=== PATIENT | female | born 1990 | race Caucasian/White ===

== ENCOUNTER 2016-10-19 16:39 | Emergency (ER) | payer BC ==
[2016-10-19] MEDS ORDERED: NS 0.9% 1000 ML* 1,000 ML IV ONE ×2 (17:33→18:43)
--- NOTE | 2016-10-19 17:59 | ED ---
Abdominal Pain/Female - HPI Summary HPI Summary: 26 female present to ED with complaints of a epigastric abdominal burning pain that radiates into left side and below shoulder blades that began around 1pm today after eating a burrito. Patient states the pain has not resolved since. Denies difficulty breathing and difficulty swallowing. Has not taken any medication for the pain. Admits to nausea. Denies vomiting, blood in stool, diarrhea and constipation. States she has had similar pain in the past after eating spicy foods that resolved on its own. States this episode feels to be worse than the past. Bringing her knees to her chest makes the pain better, laying, deep breaths and eating food makes the pain a little worse. States it is a burning 6/10. No known surgeries. Has never been diagnosed with known gallbladder disease or GERD. 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 LBM: this morning and normal LMP: The 30th of last month. No vaginal, genitalia or urinary symptoms. Negative . No concern for STDs. PMHx significant for sick sinus syndrome and MVP. Denies HTN, high cholesterol or any other medical problems. No other risk factors. No alcohol or drug use. Does smoke cigarettes. Denies known fever/chills, SOB, difficulty breathing, headache and weakness. - History of Current Complaint Chief Complaint: EDAbdPain Stated Complaint: ABD PAIN Time Seen by Provider: 10/19/16 17:51 Hx Obtained From: Patient ?: No Onset/Duration: Sudden Onset, Lasting Hours - 7, Still Present Timing: Constant Severity Initially: Moderate Severity Currently: Moderate Pain Intensity: 6 Pain Scale Used: 0-10 Numeric Location: Epigastric Radiates: Yes Radiates to: Back - left side and below shoulder blades in back Character: Burning Aggravating Factor(s): Food, Deep Breaths, Other: - position Alleviating Factor(s): Position - bringing knees to chest Associated Signs and Symptoms: Positive: Back Pain, Nausea. Negative: Constipation, Blood in Stool, Urinary Symptoms, Decreased Appetite, Vaginal Bleeding, Vaginal Discharge, Vomiting - Risk Factors Ectopic Risk Factor: Negative Ovarian Torsion Risk Factor: Negative Allergies/Adverse Reactions: Allergies Allergy/AdvReac Type Severity Reaction Status Date / Time Sulfa Antibiotics Allergy Vomiting Verified 10/19/16 16:46 PMH/Surg Hx/FS Hx/Imm Hx Endocrine/Hematology History: Denies: Hx Anticoagulant Therapy, Hx Blood Disorders, Hx Diabetes Cardiovascular History: Reports: Hx Valvular Heart Disease - MVP, Other Cardiovascular Problems/Disorders - sick sinus syndrome Denies: Hx Hypercholesterolemia, Hx Hypertension Respiratory History: Denies: Hx Asthma - Surgical History Surgery Procedure, Year, and Place: none - Immunization History Immunizations Up to Date: Yes Infectious Disease History: No Infectious Disease History: Denies: Traveled Outside the [place] in Last 30 Days - Family History Known Family History: Positive: Unknown - Social History Alcohol Use: Occasionally Substance Use Type: Reports: None Smoking Status (MU): Current Every Day Smoker Review of Systems Constitutional: Negative Positive: Chest Pain - +/- radiating from epigastric pain Respiratory: Negative Positive: Abdominal Pain, Nausea Genitourinary: Negative Musculoskeletal: Negative Skin: Negative Neurological: Negative All Other Systems Reviewed And Are Negative: Yes Physical Exam Triage Information Reviewed: Yes Vital Signs On Initial Exam: Initial Vitals Temp Pulse Resp BP Pulse Ox 100.3 F 82 16 129/76 99 10/19/16 16:46 10/19/16 16:46 10/19/16 16:46 10/19/16 16:46 10/19/16 16:46 low grade fever noted Vital Signs Reviewed: Yes Appearance: Positive: Well-Appearing, Well-Nourished, Pain Distress - mild Skin: Positive: Warm, Skin Color Reflects Adequate Perfusion, Dry. Negative: Cold, Numb, Cyanosis @, Jaundiced, Pale, Erythema @ Head/Face: Positive: Normal Head/Face Inspection Eyes: Positive: Conjunctiva Clear ENT: Positive: Hearing grossly normal, Pharynx normal Neck: Positive: Supple, Nontender Respiratory/Lung Sounds: Positive: Clear to Auscultation, Breath Sounds Present. Negative: Decreased Breath Sounds, Rales, Rhonchi, Wheezes Cardiovascular: Positive: Normal, RRR, Pulses are Symmetrical in both Upper and Lower Extremities. Negative: Murmur, Rub, Leg Edema Left, Leg Edema Right Abdomen Description: Positive: No Organomegaly, Soft, Other: - positive vance's , tender on palpation of epigastric area, rest of abdomen non tender. no discolorations or scarring. no obvious masses. Negative: Bruit, CVA Tenderness (R), CVA Tenderness (L), Distended, Guarding, McBurney's Point Tenderness, Peritoneal Signs, Pulsatile Mass Bowel Sounds: Positive: Present Pelvic Exam: Positive: external exam normal - per patient, deferred exam at this time due to no symptoms Musculoskeletal: Positive: Normal, Strength/ROM Intact Neurological: Positive: Normal, Sensory/Motor Intact, Alert, Oriented to Person Place, Time, CN Intact II-III, Reflexes Intact, NV Bundle Intact Distally, Normal Gait Psychiatric: Positive: Affect/Mood Appropriate Diagnostics - Vital Signs Vital Signs Temp Pulse Resp BP Pulse Ox 10/19/16 17:30 85 21 114/78 99 10/19/16 17:27 100.3 F 82 16 109/81 100 10/19/16 17:25 76 23 109/81 99 10/19/16 17:12 83 99 10/19/16 16:46 100.3 F 82 16 129/76 99 - Laboratory Result Diagrams: 10/19/16 17:50 10/19/16 17:50 Lab Statement: Any lab studies that have been ordered have been reviewed, and results considered in the medical decision making process. - Radiology chest Xray Interpretation: No Acute Changes - no active cardiopulmoinary disease Radiology Interpretation Completed By: Radiologist - CT CTA chest/abd CT Interpretation: No Acute Changes - no aortic dissection or aneurysm. no bowel obstruction, colitis, free fluid or free air in abdomen and visulaized portions of pelvis. appendix not seen. pericecal surgicail changes. unremarkable gallbladder and pancreas. CT Interpretation Completed By: Radiologist - Ultrasound No standard instances Ultrasound Interpretation: No Acute Changes - NO ACUTE SONOGRAPHIC PATHOLOGY OF THE VISUALIZED PORTION OF THE ABDOMEN Ultrasound Interpretation Completed By: Radiologist - EKG EKG Cardiac Rate: NL EKG Rhythm: Sinus Rhythm ST Segment: Normal Ectopy: None EKG Interpretation: NSR no stemi or ST changes, probable left atrial enlargment EKG Comparison: No Significant Change Re-Evaluation - Re-Evaluation First Eval Re-Evaluation Time: 20:00 Change: Worse - pain was worse after administration of GI cocktail. nausea also had worsened Second Eval Re-Evaluation Time: 21:00 Change: Improved - patient's pain improved after toradol, zofran and protonix. feeling better. however pain is still there. Third Eval Re-Evaluation Time: 22:40 Change: Improved - still feeling much better, understand plan and updated on imaging and lab results. ready to be d/c Abdominal Pain Fem Course/Dx - Course Course Of Treatment: given zofran, fluids and gi cocktail. labs and urinalysis obtained and unremarkable. 11k WBC. negative hcg. EKG obtained no stemi, NSR. troponin and d-dimer negative. patient's symptoms/pain improved after toradol, zofran and protonix medication. did not help with gi cocktail. u/s gallbladder obtained due to PE findings and HPI however was negative. No concern for emergent abdomen (appendicitis, pancreatitis, renal caluli, pyelonephritis or cholecystitis, gi bleed, PUD) at this time. Appears to be suffering from GERD flare/gastritis/duodenitis due to HPI and PE findings. Ruled out cardiac. No pulsatile mass or risk factors for AAA. However obtained CTA to rule out aneurysm. Unremarkable. Will be sent home on zantac and antacids. educated on diet and other lifestyle changes to help prevent attacks. follow up gi for possible endoscopy in future and to rule out h pylori. - Diagnoses Differential Diagnosis: Positive: Abdominal Aortic Aneurysm, ACS, Constipation, Gall Bladder Disease, NC, Peptic Ulcer Disease, , Urinary Tract Infection, Other - GERD, gastritis Provider Diagnoses: Gastritis, GERD (gastroesophageal reflux disease) Discharge - Discharge Plan Condition: Stable Disposition: HOME Prescriptions: Famotidine TAB* [Pepcid 20 MG TAB*] 20 mg PO BID #20 tab Ondansetron ODT TAB* [Zofran 4 MG Odt TAB*] 4 mg PO Q6H PRN #20 tab.odt PRN Reason: Nausea Patient Education Materials: Diet for Stomach Ulcers and Gastritis (ED), Gastroesophageal Reflux Disease (ED), Gastritis (ED) Referrals: Non Staff,Doctor [Primary Care Provider] - Additional Instructions: Take prescribed medication for the next couple of days to treat the GERD/ Gastritis. Also take antacids daily with meals. Follow up and make an appointment with Gastro for further work up and evaluation such as endoscopy. Try and eliminate dietary triggers (fatty foods, caffeine, chocolate, spicy foods, food with high fat content, carbonated beverages, and peppermint) Promotion of salivation through oral lozenges/chewing gum to neutralize refluxed acid and increase the rate of esophageal acid clearance. Avoidance of tobacco and alcohol as both reduce lower esophageal sphincter pressure and smoking also diminishes salivation. Abdominal breathing exercise to strengthen the antireflux barrier of the lower esophageal sphincter. Chew slowly. Sit up one hour after eating. If symptoms return, worsen, persist or new symptoms develop please seek medical attention promptly.
[2016-10-19] MEDS ORDERED: Ondansetron INJ* 2 MG/ML VIAL IV ONE ×2 (18:00→20:04)
[2016-10-19 18:03] LABS: Hematocrit 42 % (35-47); Hemoglobin 14.3 g/dl (12.0-16.0); Mean Corpuscular HGB Conc 34 g/dl (31-36); Mean Corpuscular Hemoglobin 34 pg (27-31); Mean Corpuscular Volume 99 fL (80-97); Mean Platelet Volume 7 um3 (7.4-10.4); Red Blood Count 4.25 10^6/ul (4.0-5.4); Red Cell Distribution Width 13 % (10.5-15)
[2016-10-19 18:08] LABS: Urine Bacteria 2+ (Absent); Urine Bilirubin Negative (Negative); Urine Glucose Negative (Negative); Urine Nitrite Negative (Negative)
[2016-10-19 18:19] LABS: ALT 18 U/L (7-52); AST 20 U/L (13-39); Albumin 4.7 g/dL (3.2-5.2); Alkaline Phosphatase 69 U/L (34-104); Anion Gap 7 mmol/L (2-11); BUN/Creatinine Ratio 8.3 (8-20); Blood Urea Nitrogen 9 mg/dL (6-24); C Reactive Protein < 1.00 mg/L (< 5.00); CO2 Carbon Dioxide 26 mmol/L (22-32); Calcium 9.7 mg/dL (8.6-10.3); Chloride 106 mmol/L (101-111); EGFR African American 78.9 (>60); EGFR Non-African American 61.3 (>60); Globulin 2.4 g/dL (2-4); Glucose 82 mg/dL (70-100); Lipase 46 U/L (11.0-82.0); Magnesium 2.1 mg/dL (1.9-2.7); Potassium 3.6 mmol/L (3.5-5.0); Sodium 139 mmol/L (133-145); Total Protein 7.1 g/dL (6.4-8.9)
--- NOTE | 2016-10-19 18:39 | RAD ---
HISTORY: Chest pain COMPARISONS: None VIEWS:1: Single frontal portable view of the chest at 6:15 PM FINDINGS: LINES AND TUBES: None. CARDIOMEDIASTINAL SILHOUETTE: The cardiomediastinal silhouette is normal for portable technique. PLEURA: The costophrenic angles are sharp. No pleural abnormalities are noted. LUNG PARENCHYMA: The lungs are clear. ABDOMEN: The upper abdomen is clear. There is no subphrenic gas. BONES AND SOFT TISSUES: No bone or soft tissue abnormalities are noted. IMPRESSION: NO ACTIVE CARDIOPULMONARY DISEASE.
[2016-10-19] MEDS ORDERED: Lidocaine 2% VISCOUS* 15 ML UDC PO ONE (18:43)
[2016-10-19] MEDS ORDERED: Al Hydrox/Mg Hydrox/Simet LIQ* 30 ML UDC PO ONE (18:43)
[2016-10-19] MEDS ORDERED: Ketorolac INJ* 30 MG/ML 1 ML VIAL IV PUSH ONE (19:43)
[2016-10-19] MEDS ORDERED: Ondansetron INJ* 2 MG/ML VIAL ONE (20:04)
[2016-10-19] MEDS ORDERED: Pantoprazole IV* 40 MG IV ONE (20:11)
--- NOTE | 2016-10-19 20:11 | RAD ---
HISTORY: Abdominal pain, nausea COMPARISONS: None TECHNIQUE: Multiple transverse and longitudinal ultrasound images were obtained of the right upper quadrant of the abdomen using grayscale and color Doppler imaging. FINDINGS: LIVER: The liver is normal in shape, size, contour, and echogenicity. There are no focal parenchymal masses. There is normal hepatopedal flow of the portal vein on Doppler imaging. BILIARY TREE: There is no intrahepatic or extrahepatic biliary dilatation. The common duct measures 0.1 cm. GALLBLADDER: The gallbladder is incompletely distended but is grossly normal. There is no sonographic Arreola sign. PANCREAS: The head of the pancreas is unremarkable. The tail of the pancreas is not well visualized secondary to overlying bowel gas. RIGHT KIDNEY: The right kidney is normal in shape, size, contour, and echogenicity. There is no hydronephrosis or nephrolithiasis. The right kidney measures 10.3 x 3.9 x 5.3 cm. AORTA AND IVC: The aorta and IVC are unremarkable. FLUID: There are no pleural effusions. There is no free fluid within the hepatorenal recess. OTHER FINDINGS: None. IMPRESSION: NO ACUTE SONOGRAPHIC PATHOLOGY OF THE VISUALIZED PORTION OF THE ABDOMEN
[2016-10-19] MEDS ORDERED: Iohexol 350* (CONTRAST) 500 ML MDV IV ONE (21:45)
[2016-10-19 23:48] VITALS: BP 104/71
--- NOTE | 2016-10-20 07:29 | RAD ---
INDICATION: Chest and upper abdominal pain exacerbated with deep inspiration COMPARISON: None. TECHNIQUE: Multidetector CT angiography images of the chest, abdomen and pelvis were obtained from the lung apices to the ischial tuberosities following the injection of 100 mL of Omnipaque 350 intravenous contrast. The patient received oral contrast as well prior to imaging.. ANGIOGRAPHIC FINDINGS: There are no filling defects of the centrilobular pulmonary arteries to indicate acute pulmonary embolism. The thoracic and abdominal aorta are normal in appearance. NON-ANGIOGRAPHIC FINDINGS: CHEST: The lungs are clear. There are no large pleural effusions. There is no mediastinal or hilar lymphadenopathy. The heart and major vascular structures are grossly normal in appearance. ABDOMEN \T\ PELVIS: The liver, spleen, pancreas and adrenal glands are grossly normal in appearance. The gallbladder is normal. The kidneys are normal in appearance without focal mass, calcification or signs of hydronephrosis. The visualized portions of the small and large bowel are not distended. There is no gross retroperitoneal or mesenteric lymphadenopathy. . There are no sinister bone lesions. IMPRESSION: Normal CTA examination of the chest and abdomen.
== END 2016-10-19 23:14 | disposition home or self-care (01) ==
LOC: ED 16:39
DX: K21.9 Gastro-esophageal reflux disease without esophagitis (principal); R07.9 Chest pain, unspecified; R10.9 Unspecified abdominal pain; R11.0 Nausea; F17.210 Nicotine dependence, cigarettes, uncomplicated; K29.70 Gastritis, unspecified, without bleeding
CPT/HCPCS: 36415; 71010; 71275; 74175; 76705; 80053; 81003; 81015; 83605; 83690; 83735; 84443; 84484; 84702; 85025; 85379; 85610; 85730; 86140; 87086; 93005; 96374; 96375; 99285; A9270-GY; J1885; J2405; Q9967